=== PATIENT | female | born 1980 | race Caucasian/White ===

== ENCOUNTER 2023-05-30 20:02 | Emergency (ER) | payer OTHER ==
[~2023-05-30] VITALS: Ht 170.2 cm; Wt 66.7 kg
[2023-05-30 20:57] LABS: CALCIUM 8.5 mg/dL (8.5-10.1); CREATININE 0.9 mg/dL (0.6-1.3); POTASSIUM 3.7 mmol/L (3.5-5.1)
[2023-05-30 21:00] LABS: BASOPHILS # (AUTO) 0.1 K/UL (0.0-0.2); BASOPHILS % (AUTO) 0.6 % (0.0-2.0); EOSINOPHILS # (AUTO) 0.1 K/uL (0.0-0.7); EOSINOPHILS % (AUTO) 1.2 % (0.0-7.0); LYMPHOCYTES # (AUTO) 2.1 K/uL (0.8-4.8); LYMPHOCYTES % (AUTO) 20.2 % (20.5-51.5); MEAN CORPUSCULAR HEMOGLOBIN 33.2 uug (24.7-32.8); MEAN CORPUSCULAR HGB CONC 35 g/dL (32.3-35.6); MONOCYTES # (AUTO) 0.8 K/uL (0.1-1.30); NEUTROPHILS # (AUTO) 7.2 K/uL (1.8-8.9); PLATELET COUNT (AUTO) 210 K/uL (179-408); RED BLOOD CELL COUNT(AUTO) 3.94 MIL/uL (3.63-4.92); RED CELL DISTRIBUTION WIDTH 12.9 % (12.3-17.7); WHITE BLOOD COUNT (AUTO) 10.3 K/uL (3.8-11.8)
[2023-05-30 21:10] LABS: DIFFERENTIAL COMMENT 1
[2023-05-30 21:41] VITALS: BP 132/62; TEMP 97.8; O2SAT 97
[2023-05-31 13:17] LABS: THYROID STIMULATING HORMONE 2.069 mIU/mL (0.358-3.740)
== END 2023-05-30 21:43 | disposition home or self-care (01) ==
LOC: ER 20:02
DX: R00.2 Palpitations (principal); R60.0 Localized edema
CPT/HCPCS: 36415; 84443; 85025; A4663